=== PATIENT | female | born 1985 | race Caucasian/White ===

== ENCOUNTER 2022-02-25 11:03 | Emergency (ER) | payer BC, MEDICAID ==
[2022-02-25] MEDS ORDERED: DICYCLOMINE 20 MG TAB PO STA (13:35)
[2022-02-25] MEDS ORDERED: SODIUM CHLORIDE 0.9% 1,000 ML IV STA (13:35)
[2022-02-25] MEDS ORDERED: KETOROLAC 15 MG/ML 1 ML VIAL IVP STA (13:35)
--- NOTE | 2022-02-25 14:00 | ED ---
General Adult HPI - General Chief complaint: Nausea/Vomiting/Diarrhea Stated complaint: salmonella, diarrhea Time Seen by Provider: 02/25/22 13:20 Source: patient Mode of arrival: ambulatory Limitations: no limitations - History of Present Illness Initial comments: Patient is a 36 female with confirmed case of salmonella infectious diarrhea of unknown source. She is already prescribed ciprofloxacin. Is having improved episodes of diarrhea, she was having diarrhea greater than 10 times per day that was nonbloody. Currently is having diarrhea 3-5 times a day that is nonbloody. Intermittent me has crampy abdominal pain which is unchanged. Symptoms started last week and was diagnosed on . Is currently Saturday. She states she just feels like she has generalized joint pain, fatigue, and may be dehydrated. Presents for further evaluation at this time. Denies fevers or chills. Denies nausea or vomiting. Denies chest pain or shortness of breath. Denies cough. Denies urinary complaints. Denies any vaginal discharge or bleeding. No other acute complaints at this time. Presents for further evaluation. Is working with the health department as well as her PCP who initially diagnosed her. - Related Data Home Medications Medication Instructions Recorded Confirmed Sertraline HCl 1 tab PO DAILY 07/25/15 08/03/15 Montelukast [Singulair] 10 mg PO HS 07/27/15 08/03/15 Previous Rx's Medication Instructions Recorded Acetaminophen-Codeine 300-30mg 1 each PO Q4HR PRN #20 tab 08/02/15 [Tylenol w/codeine #3] Docusate [Colace] 100 mg PO DAILY PRN #0 cap 08/02/15 Dicyclomine [Bentyl] 10 mg PO TID PRN 14 Days #42 02/25/22 capsule Allergies Allergy/AdvReac Type Severity Reaction Status Date / Time cefaclor [From Ceclor] AdvReac Rash/Hives Verified 02/25/22 12:17 sulfamethoxazole AdvReac Rash/Hives Verified 02/25/22 12:17 [From Bactrim] trimethoprim [From Bactrim] AdvReac Rash/Hives Verified 02/25/22 12:17 Review of Systems ROS Statement: Those systems with pertinent positive or pertinent negative responses have been documented in the HPI. Review of Systems: CONST: Denies fever EYES: Denies blurry vision ENT: Denies nasal congestion C/V: Denies Chest pain RESP: Denies shortness of breath GI: Endorses diarrhea : Denies dysuria SKIN: Denies rash. MSK: Denies joint pain. NEURO: Denies headache ROS Other: All systems not noted in ROS Statement are negative. Past Medical History Past Medical History: GERD/Reflux History of Any Multi-Drug Resistant Organisms: None Reported Past Surgical History: No Surgical Hx Reported Additional Past Surgical History / Comment(s): lasik eye surgery, leep Past Anesthesia/Blood Transfusion Reactions: No Reported Reaction Past Psychological History: Anxiety, Depression Past Alcohol Use History: None Reported Past Drug Use History: None Reported - Past Family History Mother Family Medical History: Coronary Artery Disease (CAD) General Exam - General Exam Comments Initial Comments: General: Appears in no acute distress. Nontoxic appearing. HEAD: Normal with no signs of head trauma. EYES: PERRLA, EOMI, conjunctiva normal, no discharge. ENT: Hearing grossly intact, normal oropharynx. Moist mucous membranes. RESPIRATORY: Clear breath sounds bilaterally. No wheezes, rales, or rhonchi. C/V: Regular rate and rhythm. S1 and S2 auscultated, no edema, peripheral pulses 2+ and intact throughout ABD: Abd is soft, nontender, nondistended EXT: Normal range of motion, no obvious deformity SKIN: No rashes or lesions observed on exposed skin. NEURO: Alert and oriented x 4. Cranial nerves II-XII intact. No focal sensory or strength deficits. Limitations: no limitations Course Vital Signs 02/25/22 02/25/22 12:13 16:00 Temperature 98.2 F 98.6 F Pulse Rate 82 77 Respiratory 16 18 Rate Blood Pressure 129/84 124/72 O2 Sat by Pulse 98 98 Oximetry Medical Decision Making - Medical Decision Making Based on the patient's presentation and physical exam, do believe she may be mildly dehydrated from persistent diarrhea. She is on day approximate 5 of symptoms after being diagnosed with salmonella infectious diarrhea. Is already on antibiotics. Improvement in diarrhea. I did offer the patient IV fluids, Bentyl, Toradol. We will obtain basic laboratory studies to evaluate for dehydration. She was in agreement this plan. Vital signs within normal limits. She is nontoxic appearing. Patient's laboratory studies are within normal limits. Urine may be a contaminated catch. She has no urinary symptoms. On reevaluation, patient is feeling improved. I believe it is safe for her to be discharged home and continue her therapy. She was in agreement with this plan. She'll continue her home ciprofloxacin as it does seem to be improving her diarrhea. She will be given Bentyl. She is requesting a work note which will be provided. She'll follow up with her feet PCP this week. She'll continue contacting the health Department regarding this. We discussed strict hand hygiene at home. She was in agreement this plan. I will provide the patient with a prescription for Bentyl. I instructed the patient to follow up with their PCP in the next 1-3 days. I explained that the patient should return to the emergency department if they experience any worsening symptoms. Strict return precautions were discussed with the patient. The patient expressed understanding of these instructions. I answered all questions that the patient had. The patient was discharged home in good condition with their prescriptions and follow up information. - Lab Data Result diagrams: 02/25/22 13:52 02/25/22 13:52 Lab Results 02/25/22 02/25/22 02/25/22 Range/Units 13:52 13:52 13:52 WBC 7.4 (3.8-10.6) k/uL RBC 4.51 (3.80-5.40) m/uL Hgb 13.6 (11.4-16.0) gm/dL Hct 39.4 (34.0-46.0) % MCV 87.5 (80.0-100.0) fL MCH 30.1 (25.0-35.0) pg MCHC 34.4 (31.0-37.0) g/dL RDW 14.1 (11.5-15.5) % Plt Count 298 (150-450) k/uL MPV 8.8 Neutrophils % 56 % Lymphocytes % 32 % Monocytes % 6 % Eosinophils % 2 % Basophils % 1 % Neutrophils # 4.1 (1.3-7.7) k/uL Lymphocytes # 2.4 (1.0-4.8) k/uL Monocytes # 0.4 (0-1.0) k/uL Eosinophils # 0.2 (0-0.7) k/uL Basophils # 0.1 (0-0.2) k/uL Sodium 135 L (137-145) mmol/L Potassium 5.0 (3.5-5.1) mmol/L Chloride 99 (98-107) mmol/L Carbon Dioxide 22 (22-30) mmol/L Anion Gap 14 mmol/L BUN 11 (7-17) mg/dL Creatinine 0.76 (0.52-1.04) mg/dL Est GFR (CKD-EPI)AfAm >90 (>60 ml/min/1.73 sqM) Est GFR (CKD-EPI)NonAf >90 (>60 ml/min/1.73 sqM) Glucose 100 H (74-99) mg/dL Calcium 9.8 (8.4-10.2) mg/dL Magnesium 2.0 (1.6-2.3) mg/dL Urine Color Light Yellow Urine Appearance Cloudy H (Clear) Urine pH 6.0 (5.0-8.0) Ur Specific [place] 1.005 (1.001-1.035) Urine Protein Negative (Negative) Urine Glucose (UA) Negative (Negative) Urine Ketones Negative (Negative) Urine Blood Trace H (Negative) Urine Nitrite Negative (Negative) Urine Bilirubin Negative (Negative) Urine Urobilinogen <2.0 (<2.0) mg/dL Ur Leukocyte Esterase Moderate H (Negative) Urine RBC 1 (0-5) /hpf Urine WBC 16 H (0-5) /hpf Ur Squamous Epith Cells 5 H (0-4) /hpf Urine Bacteria Rare H (None) /hpf Disposition Clinical Impression: Diarrhea, Salmonella Disposition: HOME SELF-CARE Condition: Good Instructions (If sedation given, give patient instructions): Acute Diarrhea (ED) Prescriptions: Dicyclomine [Bentyl] 10 mg PO TID PRN 14 Days #42 capsule PRN Reason: Pain Is patient prescribed a controlled substance at d/c from ED?: No Referrals: Maureen Amador DO [Primary Care Provider] - 1-2 days Time of Disposition: 16:10
[2022-02-25 14:28] LABS: Basophils # (A) 0.1 k/uL (0-0.2); Basophils % (A) 1 %; Eosinophils # (A) 0.2 k/uL (0-0.7); Eosinophils % (A) 2 %; HCT 39.4 % (34.0-46.0); HGB 13.6 gm/dL (11.4-16.0); Lymphocytes # (A) 2.4 k/uL (1.0-4.8); Lymphocytes % (A) 32 %; MCH 30.1 pg (25.0-35.0); MCHC 34.4 g/dL (31.0-37.0); MCV 87.5 fL (80.0-100.0); Mean Platelet Volume 8.8; Monocytes # (A) 0.4 k/uL (0-1.0); Monocytes % (A) 6 %; Neutrophils # (A) 4.1 k/uL (1.3-7.7); Neutrophils % (A) 56 %; Platelet Count 298 k/uL (150-450); RBC 4.51 m/uL (3.80-5.40); RDW 14.1 % (11.5-15.5); WBC 7.4 k/uL (3.8-10.6)
[2022-02-25 14:36] LABS: African American GFR (CKD) >90 (>60 ml/min/1.73 sqM); Anion Gap 14 mmol/L; Blood Urea Nitrogen 11 mg/dL (7-17); Calcium 9.8 mg/dL (8.4-10.2); Carbon Dioxide 22 mmol/L (22-30); Chloride 99 mmol/L (98-107); Glucose 100 mg/dL (74-99); Non-African American GFR(CKD) >90 (>60 ml/min/1.73 sqM); Sodium 135 mmol/L (137-145)
[2022-02-25 15:27] LABS: Appearance,Urine Cloudy (Clear); Bacteria,Urine Rare /hpf; Bilirubin,Urine Negative (Negative); Blood,Urine Trace (Negative); Color,Urine Light Yellow; Glucose,Urine (UA) Negative (Negative); Ketones,Urine Negative (Negative); Leukocyte Esterase,Urine Moderate (Negative); Nitrite,Urine Negative (Negative); Protein,Urine Negative (Negative); RBC,Urine 1 /hpf (0-5); Specific Gravity,Urine 1.005 (1.001-1.035); Squamous Epithelial Cell,Urine 5 /hpf (0-4); Urobilinogen,Urine <2.0 mg/dL (<2.0); WBC,Urine 16 /hpf (0-5)
[2022-02-25 16:16] VITALS: BP 124/72; PULSE 77; RESP 18; TEMP 98.6
== END 2022-02-25 16:27 | disposition home or self-care (01) ==
LOC: EC 11:03
DX: A02.9 Salmonella infection, unspecified (principal); R19.7 Diarrhea, unspecified; Z88.1 Allergy status to other antibiotic agents; Z88.2 Allergy status to sulfonamides
CPT/HCPCS: 36415; 80048; 83735; 85025; 81001; 87086; 99284; 96374; 96361; J1885